=== PATIENT | female | born 1985 | race Caucasian/White ===

== ENCOUNTER → 2017-12-14 13:25 | Outpatient (CLI) | payer MEDICAID, SELFPAY ==
[2017-12-14 15:06] LABS: HCT 33.5 % (36.0-46.0); HGB 11.5 g/dL (12.0-15.5); Mean Corp. HGB Concentration 34.3 g/dL (32.0-36.0); Mean Corpuscular Hemoglobin 29.6 pg (27.0-33.0); Mean Corpuscular Volume 86.1 fL (80-95); Mean Platelet Volume 9.6 fL (8.0-11.0); Platelet Count 208 x1000/uL (130-400); RBC 3.89 m/cumm (4.00-5.20); White Blood Cell Count 8.48 k/cumm (4.4-10.8)
[2017-12-14 15:13] LABS: Glucose,1 Hr (Glucola) 120 mg/dL (80-140)
== END ==
PROVIDERS: PCP Family Medicine; Visit Provider Advanced Practice Midwife
DX: Z34.93 Encounter for supervision of normal pregnancy, unspecified, third trimester (principal); Z3A.28 28 weeks gestation of pregnancy
CPT/HCPCS: 36415; 82950; 85027

== ENCOUNTER 2018-02-17 16:25 | Outpatient (CLI) | payer MEDICAID, SELFPAY ==
[2018-02-17 16:55] LABS: HCT 34.7 % (36.0-46.0); HGB 11.8 g/dL (12.0-15.5); Mean Corpuscular Hemoglobin 29.2 pg (27.0-33.0); Mean Corpuscular Volume 85.9 fL (80-95); Mean Platelet Volume 10.3 fL (8.0-11.0); Platelet Count 214 x1000/uL (130-400); RBC 4.04 m/cumm (4.00-5.20); RBC Distribution Width 13.3 % (11.7-14.6); White Blood Cell Count 7.09 k/cumm (4.4-10.8)
[2018-02-17 17:37] LABS: COMMENT (LAB VIEW ONLY) 126.74 mg/dL
[2018-02-17 17:38] LABS: ALT 27 U/L (12-78); AST 19 U/L (15-37); Albumin 2.7 g/dL (3.4-5.0); Alkaline Phosphatase 148 U/L (46-116); Bilirubin, Direct 0.09 mg/dL (0.00-0.20); Bilirubin, Total 0.3 mg/dL (0.2-1.0); Total Protein 6.2 g/dL (6.4-8.2); Uric Acid 4.7 mg/dL (2.6-6.0)
[2018-02-17 17:43] LABS: Prot/Crea Ur Ratio 0.12
== END 2018-02-17 16:45 ==
PROVIDERS: PCP Family Medicine; Visit Provider Advanced Practice Midwife
DX: Z34.93 Encounter for supervision of normal pregnancy, unspecified, third trimester (principal); Z36.85 Encounter for antenatal screening for Streptococcus B; Z36.89 Encounter for other specified antenatal screening
CPT/HCPCS: 36415; 80076; 85027; 82565; 84156; 84550; 87081

== ENCOUNTER 2018-02-23 13:37 | Outpatient (CLI) | payer MEDICAID, SELFPAY ==
[2018-02-23 14:07] LABS: HCT 37.9 % (36.0-46.0); HGB 12.9 g/dL (12.0-15.5); Mean Corpuscular Hemoglobin 29.1 pg (27.0-33.0); Mean Corpuscular Volume 85.6 fL (80-95); Mean Platelet Volume 10.7 fL (8.0-11.0); Platelet Count 199 x1000/uL (130-400); RBC 4.43 m/cumm (4.00-5.20); RBC Distribution Width 13.6 % (11.7-14.6); White Blood Cell Count 7.03 k/cumm (4.4-10.8)
[2018-02-23 14:41] LABS: ALT 37 U/L (12-78); AST 33 U/L (15-37); Alkaline Phosphatase 171 U/L (46-116); Bilirubin, Direct 0.14 mg/dL (0.00-0.20); Bilirubin, Total 0.4 mg/dL (0.2-1.0); Total Protein 6.8 g/dL (6.4-8.2); Uric Acid 4.9 mg/dL (2.6-6.0)
[2018-02-23 14:51] LABS: PROTEIN 17.3 mg/dL
[2018-02-23 14:52] LABS: COMMENT (LAB VIEW ONLY) 124.08 mg/dL; Prot/Crea Ur Ratio 0.13
== END 2018-02-23 13:57 ==
PROVIDERS: PCP Family Medicine; Visit Provider Advanced Practice Midwife
DX: Z34.83 Encounter for supervision of other normal pregnancy, third trimester (principal)
CPT/HCPCS: 80076; 85027; 82565; 84156; 84550

== ENCOUNTER 2018-03-03 15:33 | Outpatient (CLI) | payer MEDICAID, SELFPAY ==
[2018-03-03 16:47] LABS: HCT 37.2 % (36.0-46.0); HGB 12.8 g/dL (12.0-15.5); Mean Corp. HGB Concentration 34.4 g/dL (32.0-36.0); Mean Corpuscular Hemoglobin 29.6 pg (27.0-33.0); Mean Corpuscular Volume 86.1 fL (80-95); Mean Platelet Volume 10.8 fL (8.0-11.0); Platelet Count 215 x1000/uL (130-400); RBC 4.32 m/cumm (4.00-5.20); RBC Distribution Width 13.5 % (11.7-14.6); White Blood Cell Count 8.09 k/cumm (4.4-10.8)
== END 2018-03-03 15:53 ==
PROVIDERS: PCP Family Medicine; Visit Provider Obstetrics & Gynecology Gynecology
DX: O34.219 Maternal care for unspecified type scar from previous cesarean delivery (principal); Z01.818 Encounter for other preprocedural examination
CPT/HCPCS: 85027; 86850; 86900; 86901

== ENCOUNTER 2018-03-05 06:18 | Inpatient (IN) | payer MEDICAID, SELFPAY ==
[2018-03-05] VITALS (11 sets, daily range): BP systolic 155; BP diastolic 95; PULSE 101; RESP 16–20; TEMP 36.9; O2SAT 99–100
[2018-03-05] MEDS: Lactated Ringers 1,000 ML 125 ML IV (07:00)
[2018-03-05] MEDS: Sodium Citrate 30 ML CUP PO (07:05)
[2018-03-05] MEDS: Bupivacaine 0.25% Pres-Free 10 ML VIAL IT (08:00)
--- NOTE | 2018-03-05 08:45 | FALL_PTH ---
PATIENT: Sheron Silver LOC: OBS U#:[id number] AGE/SX: 32/F ROOM: OBS.304 RE03/05/[address]: Pattie Lopez : 1985 BED: A DIS: 03/07/2018 SPEC #: [id number] RECD: 03/05/18 12:21 STATUS: TWYLA REDarcy #: [id number] MICHELLE: 03/05/18 08:[address]: Pattie Lopez DEPT: Surgical Specimen RECD BY: Serena De La Fuente ENTERED: 03/05/18 12:22 SP TYPE: Fall OTHR DR: Jaden Covarrubias MD Tissues: 1 - FALLOPIAN TUBE (STERILIZATION) 2 - FALLOPIAN TUBE (STERILIZATION) Procedures: GROSS AND MICRO LEVEL 2 Comments: [id number]
[2018-03-05] MEDS: Ketorolac 30 MG/ML VIAL IVP ×2 (11:25→18:06)
[2018-03-05] MEDS: Normal Saline Flush 10 ML SYR IVP (11:25)
[2018-03-05] MEDS: Lactated Ringers 1,000 ML 120 ML IV (16:44)
[2018-03-05] MEDS: Lactated Ringers 500 ML IV (16:55)
[2018-03-05] MEDS: Acetaminophen 325 MG TAB 650 MG PO (18:12)
[2018-03-05] MEDS: Normal Saline Flush 10 ML SYR IV (18:12)
[2018-03-06] MEDS: Ketorolac 30 MG/ML VIAL IVP ×2 (00:10→06:17)
[2018-03-06] MEDS: oxyCODONE 5 mg/Acetaminophen 325 mg TAB PO ×6 (00:12→19:05)
[2018-03-06 08:22] LABS: HCT 30.9 % (36.0-46.0); HGB 10.3 g/dL (12.0-15.5); Mean Corp. HGB Concentration 33.3 g/dL (32.0-36.0); Mean Corpuscular Hemoglobin 28.9 pg (27.0-33.0); Mean Corpuscular Volume 86.8 fL (80-95); Mean Platelet Volume 10.6 fL (8.0-11.0); Platelet Count 168 x1000/uL (130-400); RBC 3.56 m/cumm (4.00-5.20); RBC Distribution Width 13.4 % (11.7-14.6); White Blood Cell Count 8.65 k/cumm (4.4-10.8)
[2018-03-06] MEDS: Ibuprofen 600 MG TAB PO ×3 (12:30→23:27)
[2018-03-06] MEDS: Docusate Sodium 100 MG CAP PO (18:30)
[2018-03-07] MEDS: oxyCODONE 5 mg/Acetaminophen 325 mg TAB PO ×2 (00:29→11:20)
[2018-03-07] MEDS: Ibuprofen 600 MG TAB PO ×2 (05:50→11:17)
--- NOTE | 2018-03-08 09:24 | ROE_ITS ---
DATE OF PROCEDURE March 06, 2018 PREOPERATIVE DIAGNOSES Intrauterine at term. Desires permanent sterilization. PREOPERATIVE DIAGNOSES Intrauterine at term. Desires permanent sterilization. PROCEDURE Elective repeat low transverse caesarean delivery with bilaterally salpingectomy. SURGEON Pattie Lopez M.D. LABORATORY CHIEF Nano Benson M.D. ANESTHESIA Spinal by Drew Lutz C.R.N.A. FLUIDS 800 cc of crystalloid. URINE OUTPUT 50 cc of clear adama urine in the Britton catheter at the completion of the procedure. ESTIMATED BLOOD LOSS 600 cc. DRAINS Britton to gravity drainage. SPECIMENS Cord blood to lab. Right and left fallopian tubes. COMPLICATIONS None. DISPOSITION Awake to Recovery Area in stable condition. INDICATIONS This is a 32-year-old multiparous female who had been [facility] at [facility] and desires permanent sterilization. She has been counseled regarding the alternatives, the risk of regret and any possible complications. FINDINGS AT THE TIME OF SURGERY A viable female 7 pounds 0 ounces. Apgars 8 at one minute, 9 at 5 minutes. Parents will call her Yandy. Clear amniotic fluid. Normal fallopian tube, uterus, and ovaries. DESCRIPTION OF PROCEDURE The patient was taken to the Operating Room where she was placed in a sitting position, and spinal anesthesia was administered without difficulty. She was then placed in the supine position with a leftward tilt. A Britton catheter was placed to gravity drainage. Betadine prep of the vagina was performed by myself. The abdomen was prepped and draped in the usual sterile fashion. A scalpel was used to incise along the previous Pfannenstiel incision, and the underlying subcutaneous tissue was dissected using Bovie electrocautery to the level of the rectus fascia. The rectus fascia was nicked in the midline and the incision was extended laterally with curved Calderon scissors. Two Rox clamps were applied to the inferior aspect of the incision. The rectus muscles were dissected off of the overlying rectus fascia using blunt technique and Bovie electrocautery. A similar technique was carried out in the superior aspect of this incision. The rectus muscles were then in the midline. The peritoneum was entered bluntly and the peritoneal incision was stretched to allow adequate visualization of the low uterine segment. The bladder blade was used to retract the bladder away from the operative field. The vesicouterine reflection was then grasped, entered with Metzenbaum scissors and the incision extended laterally. The bladder flap was created digitally and the bladder was once again retracted away from the operative field with the bladder blade. A scalpel was used to incise the lower uterine segment in a transverse fashion. The incision was extended laterally with blunt technique. The sac was ruptured. A single-gloved hand was placed into the uterus. The head was delivered atraumatically with the assistance of fundal pressure, followed by shoulders, trunk and extremities. The cord was doubly clamped and cut. The was handed off to the waiting Pediatric team. The placenta was then delivered with a combination of gentle cord traction and uterine fundal massage. The uterus was exteriorized, cleared of all clots and debris. The uterine incision was closed with an imbricating suture of #0-Vicryl followed by a second suture of #0 -Vicryl in a vertical mattress fashion. The uterine incision was noted to be hemostatic. Attention was turned to the patient's fallopian tubes, which were identified, grasped and using a 5-mm LigaSure device, sequentially clamped, cauterized and cut to the level of the uterine cornua. This occurred on both the right and left sides, both specimens were passed off of the operative field and sent to pathology. After it was assured there was hemostasis at the salpingectomy site, the uterus was returned to the abdomen. The pericolic gutters cleared of all clots and debris. The abdominal wall and bladder flap inspected and noted to be hemostatic. The abdominal peritoneum was re-approximated with a running suture of #2-0 Vicryl and the rectus fascia was reapproximated with a running suture of 0-Vicryl extended from the lateral margins overlapping in the midline. Subcutaneous tissue was irrigated with normal saline, noted to be hemostatic. space was closed with a running suture of #2-0 Vicryl. The skin was reapproximated with a #4-0 Vicryl in a subcuticular fashion. The skin was then sealed with skin glue. The uterus was massaged for any remaining clots and debris. The patient was then transferred to the Recovery Area in stable condition. SCDs were on during the case. She received 2 grams of Ancef prior to skin incision.
== END 2018-03-07 12:45 | disposition home or self-care (01) | DRG 785 ==
LOC: PDS 07:44 → OBS 08:53
PROVIDERS: Admitting Provider Obstetrics & Gynecology Gynecology; PCP Family Medicine; Visit Provider Obstetrics & Gynecology Gynecology
PROC: 10D00Z1 Extraction of Products of Conception, Low, Open Approach (ICD-10-PCS; CPT 59514; principal; 2018-03-05 07:30)
DX: O34.211 Maternal care for low transverse scar from previous cesarean delivery (principal); Z37.0 Single live birth; Z30.2 Encounter for sterilization; Z3A.40 40 weeks gestation of pregnancy; N85.8 Other specified noninflammatory disorders of uterus
CPT/HCPCS: 59514; 58611; 36415; 85027; 88302; J0690; J1885; J2405; J3010; J3490

== ENCOUNTER 2019-02-12 19:30 | Emergency (ER) | payer MEDICAID, SELFPAY ==
[2019-02-12 19:42] VITALS: BP 136/94; PULSE 109; RESP 19; TEMP 36.7; O2SAT 99
--- NOTE | 2019-02-12 20:23 | ED.GENADUL_ITS ---
Discharge Plan Disposition Patient Disposition: HOME Discharge Details Chief Complaint: RashLesion Clinical Impression: Genital lesion, female Primary Care Provider: Jaden Covarrubias ED Provider: Guru Nelson Home Meds and New Rx's Prescriptions: No Action CompleteNate 1 EACH tablet,chewable 1 ea PO DAILY Qty: 30 RF: 5 ibuprofen 600 mg tablet 600 mg PO QID PRN (Reason: pain) Qty: 30 RF: 0 valacyclovir 500 mg tablet 500 mg PO Q12H Qty: 14 RF: 2 Discharge Instructions Additional Instructions: Your lesions today are most likely a result of your waxing. I have a low suspicion for herpes at this time. We did send for confirmatory testing via blood. Your primary care if we will follow-up with results. Avoid irritating the lesions. Place bacitracin over the shallow ulcerations Referrals: Jaden Covarrubias MD [Primary Care Provider] - 5 days Medical Decision Making This is a nontoxic-appearing 33-year-old female presenting to the emergency department with genital lesions status post Maur[place]ian wax at home 1 week ago. Symptoms started within 24 hours after her waxing. She has no significant pain. Ulceration on her right labia does not have characteristics of a herpetic lesion. She does have several papules. I suspect most more likely local irritation in setting of her waxing. She does have an order for a herpes simplex virus placed by her primary care provider with with she has not been able to have drawn at this time. We will draw labs here for confirmatory testing. She will follow-up with her primary care provider as needed. HPI General Date/Time Provider Initiated Documentation: 02/12/19 20:05 . HPI Narrative: Patient is a 33-year-old female who presents to the emergency department with shallow ulcerations over her vagina. Patient states symptoms started roughly 1 week ago and occurred roughly 12 hours status post performing a home Mauritanian wax. Patient states that initially her vision started off as what looked like pimples and then several of them developed into shallow ulcerations. She denies any significant tenderness. No fevers. No abdominal pain. Patient states that she sent photos to her primary care provider who was concerned that there may be herpetic and started her on valacyclovir. Patient had a order placed outpatient for an HSV panel however has been unable to get time off from work. She is here for repeat evaluation but then also have the confirmatory testing performed. Related Data Home Medications Medication Instructions Recorded Confirmed vit 14-iron fum-folic 1 ea PO DAILY #30 tab.chew 07/06/17 02/12/19 [Completenate Tablet Chew] ibuprofen 600 mg tablet 600 mg PO QID PRN #30 tab 03/07/18 02/12/19 valacyclovir 500 mg tablet 500 mg PO Q12H #14 tab 02/12/19 02/12/19 Previous Rx's Medication Instructions Recorded vit 14-iron fum-folic 1 ea PO DAILY #30 tab.chew 07/06/17 [Completenate Tablet Chew] ibuprofen 600 mg tablet 600 mg PO QID PRN #30 tab 03/07/18 valacyclovir 500 mg tablet 500 mg PO Q12H #14 tab 02/12/19 Allergies Allergy/AdvReac Type Severity Reaction Status Date / Time No Known Drug Allergies Allergy Unverified 02/12/19 19:47 General Stated Complaint: RashLesion WAYNE: 3 Review of Systems Constitutional Constitutional: Denies chills, Denies fatigue, Denies fever(s) and Denies lethargy Genitourinary Genitourinary: Denies abnormal vaginal bleeding, Denies hematuria, Denies urinary frequency, Denies difficulty voiding, Denies post void dribbling, Denies genital pruritis, Reports genital lesions, Denies menorrhagia, Denies dysuria, Denies pelvic pain, Denies sexual dysfunction, Denies urinary incontinence and Denies vaginal discharge Integumentary/Breasts Skin/Breast: Reports rash, Denies skin pain, Denies skin swelling, Reports skin ulcer and Reports sores Endocrine Endocrine: Denies fatigue [facility] Medical History History of gestational hypertension (Acute) 2014 with anterpartum. 2018 Rx with Nifedipine and changed to labetalol with improvement in blood pressures.07/2018 Labetalol discontinued. Sterilization (Resolved) 03/05/18.at time of repeat c/s. Surgical History section (08/19/13) LTCS 2 layer closure. F. 'Brigida'. 3370gm arrest of descent. IOL for HTN. 03/05/18 elective repeat F. 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 What is your relationship status?: Panel score (0-1 are the most socially isolated patients): 1 Duration: 60-90 minutes/day Frequency: 5-6 times per week Special rafiq needs: No Seatbelt use: always Helmet use: Yes Drive intox or ride w/intox scoop driver: No Water heater temp set <120 deg: No Working smoke detector in home: Yes Fire extinguisher in home: Yes Carbon monox detector in home: Yes Firearms in home: Yes Firearms unloaded and locked: Yes Do you feel safe at home: Yes Do you feel safe in your relationship?: Yes Victim of physical abuse: No Victim of emotional abuse: No Victim of sexual abuse: No History History 3 Para 1 Hx # Term Pregnancies 1 Multiple births Hx # Pregnancies Ectopic pregnancies AB induced Hx Number of Living Children 1 AB spontaneous 1 Past Pregnancies Del. Date GA/Weeks # Outcome Route Wgt Sex Labor Lgth Anesthes ia Location [facility] 08/19/13 38 No Successful 3.374 kg Female 72 hrs [facility] AOC 03/05/18 No Successful vaginal [place] [facility] [place] Delivery Date: 08/19/13 On 02/10/18 @ 11:35 Zoila Murguia RN OIL preeclampsia- failed OIL after multiple attempts Delivery Date: 03/05/18 On 05/05/18 @ 14:37 Mireya Ulrich LPN Brigida Exam Const General: cooperative, healthy appearing, comfortable and no acute distress HENMT Head: normal to inspection General nose exam: external nose normal Mouth: oral mucosae normal Resp Effort & Inspection: normal respiratory effort External Female Exam: external lesions (several shallow erythematous papules on either labia. ) and other Other: Small shallow ulceration on the right labia. Area is nontender. No erythema or evidence of infection. No mucosal lesions. Course Vital Signs Vital signs: Vital Signs Temperature 36.7 C 02/12/19 19:42 Pulse 109 H 02/12/19 19:42 Respiratory Rate 19 02/12/19 19:42 Blood Pressure 136/94 H 02/12/19 19:42 Pulse Oximetry 99 02/12/19 19:42 Temperature 36.7 C 02/12/19 19:42 Temperature Source Skin 02/12/19 19:42 Pulse 109 H 02/12/19 19:42 Respiratory Rate 19 02/12/19 19:42 Respiratory Effort 02/12/19 19:48 Blood Pressure 136/94 H 02/12/19 19:42 Blood Pressure Position Sitting 02/12/19 19:42 Pulse Oximetry 99 02/12/19 19:42 Oxygen Delivery Method Room Air 02/12/19 19:42 Oxygen Flow Rate 0 02/12/19 19:42 Pain Level 3 02/12/19 19:42
[2019-02-14 23:31] LABS: HSV 1 PCR, Blood Negative (Negative); HSV 2 PCR, Blood Negative (Negative)
== END 2019-02-12 21:24 | disposition home or self-care (01) ==
PROVIDERS: Emergency Provider Physician Assistant; PCP Family Medicine
DX: N90.89 Other specified noninflammatory disorders of vulva and perineum (principal)
CPT/HCPCS: 87529; 99283

== ENCOUNTER 2020-09-05 08:39 | Outpatient (CLI) | payer MEDICAID, SELFPAY ==
[2020-09-06 13:11] LABS: COVID-19 RT-PCR UVMMC Result Positive (Negative)
== END 2020-09-05 08:40 | disposition home or self-care (01) ==
DX: Z20.822 Contact with and (suspected) exposure to COVID-19 (principal); R05 Cough
CPT/HCPCS: U0003

== ENCOUNTER 2021-02-15 16:41 | Outpatient (REF) | payer MEDICAID, SELFPAY ==
--- NOTE | 2021-02-15 16:15 | PAPFT_PTH ---
PATIENT: Sheron Silver LOC: [facility] U#:[id number] AGE/SX: 35/F ROOM: RE02/15/[address]: Pattie Lopez : 1985 BED: DIS: 02/15/2021 SPEC #: [id number] RECD: 02/18/21 11:17 STATUS: TWYLA REDarcy #: [id number] MICHELLE: 02/15/21 16:[address]: Pattie Lopez DEPT: [facility] Cytology RECD BY: Betty Rocha ENTERED: 02/18/21 11:18 SP TYPE: PAPFT OTHR DR: Emely Quan APRN Tissues: 1 - CX/ENDOCX FOR PAP SMEARS Procedures: PAP THIN PREP/UVM Screening HPV DNA PROBE Comments: [id number]
== END 2021-02-15 16:42 | disposition home or self-care (01) ==
LOC: LBN 16:41
PROVIDERS: Visit Provider Obstetrics & Gynecology Gynecology
DX: Z12.4 Encounter for screening for malignant neoplasm of cervix (principal); Z01.419 Encounter for gynecological examination (general) (routine) without abnormal findings; Z11.51 Encounter for screening for human papillomavirus (HPV)
CPT/HCPCS: 88142; 87624

== ENCOUNTER 2022-01-23 14:11 | Outpatient (REF) | payer MEDICAID, SELFPAY ==
[2022-01-23 21:16] LABS: Bilirubin Negative (Negative); Blood Small (Negative); Clarity Cloudy (Clear); Glucose Negative (Negative); Ketones Negative (Negative); Leukocyte Esterase Large (Negative); Nitrite Negative (Negative); Specific Gravity 1.015 (1.005-1.025); Urobilinogen 0.2 EU/dL (Up TO 0.2)
[2022-01-23 21:28] LABS: Epithelial Cells Rare HPF (Negative); WBC >50 HPF (0-5)
[2022-01-23 21:29] LABS: Bacteria Few HPF (Negative); C & S Indicated? Yes; Crystals Negative HPF (Negative); Mucus Negative (Negative); Other Cells Few Renal (Negative)
== END 2022-01-23 14:12 | disposition home or self-care (01) ==
LOC: LBN 14:11
PROVIDERS: PCP Nurse Practitioner Family; Visit Provider Nurse Practitioner Family
DX: R39.89 Other symptoms and signs involving the genitourinary system (principal)
CPT/HCPCS: 87077; 81003; 81015; 87086; 87186

== ENCOUNTER 2022-05-04 11:56 | Emergency (ER) | payer MEDICAID, SELFPAY ==
[2022-05-04 11:59] VITALS: BP 146/104; PULSE 96; RESP 20; TEMP 37.1; O2SAT 99
--- NOTE | 2022-05-04 12:40 | ED.GENADUL_ITS ---
Discharge Plan Disposition Patient Disposition: Home Condition: Stable Discharge Details Clinical Impression: Acute streptococcal pharyngitis Primary Care Provider: Willian Talley ED Provider: Mich Nguyen Home Meds and New Rx's Prescriptions: New amoxicillin 500 mg tablet 500 mg PO BID 10 Days Qty: 20 0RF Continued multivitamin [Daily Multi-Vitamin] Tablet 1 tab PO DAILY sertraline 25 mg tablet 25 mg PO DAILY Qty: 30 4RF magnesium 200 mg tablet 200 mg PO DAILY Qty: 90 3RF hydrochlorothiazide 12.5 mg tablet 12.5 mg PO DAILY Qty: 104 3RF Rx Instructions: Take one tablet daily. Take two tablets daily for 14 days during menstrual cycle. ibuprofen 600 mg tablet 600 mg PO QID PRN (Reason: pain) Qty: 30 0RF Discharge Instructions Instructions: Pharyngitis (ED) Additional Instructions: Please take antibiotic as prescribed and for the full course of medication. If you develop any new or significant worsening of symptoms feel free to return the emergency department for reassessment. Otherwise you may continue to take pewe-xfj-ooopwdy medication as needed for pain or fever. Also take probiotic as discussed. If you are not improving in the next week please follow-up with your primary care provider for reassessment Referrals: Willian Talley, [employer] [Primary Care Provider] - (If not improving follow-up with primary care provider) Discharge Data Discharge Date/Time-TO BE ENTERED AT DEPARTURE: 05/04/22 12:57 Medical Decision Making Patient presenting to the emergency department for chief complaint of sore throat that had sudden onset yesterday. Patient denies any difficulty breathing swallowing and states only other associated symptom beyond pain and discomfort is some very mild nasal congestion. Exam consistent with Pharyngitis. no signs of deep neck space infection ( Retropharyngeal abscess, Rafael's angina, Parapharyngeal space infection, Peritonsillar Abscess (DRILL BIT SHARPENER)) or Epiglottitis. Pt non toxic and stable. 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 Patient placed on amoxicillin. Patient also was given single dose of Decadron in the emergency department to help with symptoms. After discussion of diagnosis and plan of care patient has no further needs, questions, or concerns and states clear understanding to return to the emergency department for any worsening symptoms. This documentation was generated using [employer] system, please disregard any oddities of phrase or misspellings. HPI General Mode of arrival: ambulatory . Date/Time Provider Initiated Documentation: 05/04/22 11:57 . Limitations to Documentation: no limitations . Information obtained by: patient and RN notes reviewed . History of Present Illness 37 year old F presents to the emergency department with the chief complaint of Sore throat, described as moderate and severe, with intensity rated at 8. Quality is described as sharp, Patient started experiencing this day(s) (1) and it has been constant. No relieving factors improve symptom(s), No exacerbating factors reported . Patient did receive the following treatments prior to arrival, NSAID Related Data Home Medications Medication Instructions Recorded Confirmed ibuprofen 600 mg tablet 600 mg PO QID PRN pain #30 tabs 03/07/18 05/04/22 multivitamin (Daily Multi-Vitamin 1 tab PO DAILY 02/15/21 05/04/22 tablet) magnesium 200 mg tablet 200 mg PO DAILY #90 tabs 05/23/21 05/04/22 hydrochlorothiazide 12.5 mg tablet 12.5 mg PO DAILY #104 tabs 04/17/22 05/04/22 sertraline 25 mg tablet 25 mg PO DAILY #30 tabs 04/21/22 05/04/22 amoxicillin 500 mg tablet 500 mg PO BID 10 days #20 tabs 05/04/22 Previous Rx's Medication Instructions Recorded ibuprofen 600 mg tablet 600 mg PO QID PRN pain #30 tabs 03/07/18 magnesium 200 mg tablet 200 mg PO DAILY #90 tabs 05/23/21 hydrochlorothiazide 12.5 mg tablet 12.5 mg PO DAILY #104 tabs 04/17/22 sertraline 25 mg tablet 25 mg PO DAILY #30 tabs 04/21/22 amoxicillin 500 mg tablet 500 mg PO BID 10 days #20 tabs 05/04/22 Allergies Allergy/AdvReac Type Severity Reaction Status Date / Time No Known Drug Allergies Allergy Verified 04/21/22 15:26 General Stated Complaint: Sorethroat WAYNE: 4 Review of Systems Constitutional Constitutional: Denies chills, Denies fever(s), Denies headache(s) and Reports malaise Eyes Eyes: Reports system reviewed and no additional complaints, except as documented ENT Ears, Nose, Mouth, and Throat: Denies headache(s), Reports nasal congestion (Very mild), Denies nasal discharge and Reports sore throat Cardiovascular Cardiovascular: Denies chest pain and Denies dyspnea Respiratory Respiratory: Denies cough and Denies dyspnea Gastrointestinal Gastrointestinal: Denies abdominal pain, Denies diarrhea, Denies nausea and Denies vomiting Musculoskeletal Musculoskeletal: Denies myalgias Integumentary/Breasts Skin/Breast: Denies rash Neurologic Neurologic: Denies headache(s) PFSH All Active Problems (Updated 05/04/22 @ 12:45 by Mich Nguyen NP) Acute streptococcal pharyngitis (Acute) PMS (premenstrual syndrome) (Acute) Influenza vaccination requested (Acute) Edema (Acute) Elevated blood pressure reading (Acute) History of gestational hypertension (Acute) 2013 with anterpartum. 2017 Rx with Nifedipine and changed to labetalol with improvement in blood pressures.07/2018 Labetalol discontinued. Insomnia (Acute 03/29/13) Increased body mass index (Acute) Depression (Acute) Anxiety (Acute) Surgical History Cholecystectomy (~01/2007) History of section 08/19/13. LTCS 2 layer closure. Foote (Averie). 3370gm arrest of descent. IOL for HTN. 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 What is your relationship status?: Panel score (0-1 are the most socially isolated patients): 1 Duration: 60-90 minutes/day Frequency: 5-6 times per week Special rafiq needs: No Seatbelt use: always Helmet use: Yes Drive intox or ride w/intox steam train driver: No Water heater temp set <120 deg: No Working smoke detector in home: Yes Fire extinguisher in home: Yes Carbon monox detector in home: Yes Firearms in home: Yes Firearms unloaded and locked: Yes Do you feel safe at home: Yes Do you feel safe in your relationship?: Yes Victim of physical abuse: No Victim of emotional abuse: No Victim of sexual abuse: No History History 3 Para 1 Hx # Term Pregnancies 1 Multiple births Hx # Pregnancies Ectopic pregnancies AB induced Hx Number of Living Children 1 AB spontaneous 1 Past Pregnancies Del. Date GA/Weeks # Preg Succ Route Wgt Sex Labor Lgth Anesth esia Location Prov Complic 08/19/13 38 No 3373.593 g Female 72 hrs [facility] AOC 03/05/18 No vaginal Female [facility] Delivery Date: 08/19/13 Last Updated by: Zoila Murguia RN OIL preeclampsia- failed OIL after multiple attempts Delivery Date: 03/05/18 Last Updated by: Mireya Allred Exam Const General: cooperative, comfortable and no acute distress Orientation: alert and awake HENMT Head: normal to inspection, normocephalic and atraumatic Ears: hearing grossly normal bilaterally and TM's normal bilaterally General nose exam: external nose normal Face and sinus: no erythema Mouth: oral mucosae normal, no drooling, no muffled voice and no trismus Throat: abnormal tonsil bilaterally erythema and posterior oropharynx abnormal erythema Neck Neck: normal visual inspection, full ROM, no lymphadenopathy, no meningeal signs, trachea midline and supple Resp Effort & Inspection: normal respiratory effort and able to speak in complete sentences Auscultation: clear to auscultation bilaterally Cardio Rate: regular rate Rhythm: regular rhythm Heart Sounds: S1 normal, S2 normal and normal S1 and S2 Skin General skin exam: no rashes or lesions noted and dry skin (warm) Neuro General: patient alert, patient awake, patient oriented x3 and moves all extremities Cognition: normal cognition Speech: speech normal Course Vital Signs Vital signs: Vital Signs Temperature 37.1 C 05/04/22 11:59 Pulse 96 H 05/04/22 11:59 Respiratory Rate 20 05/04/22 11:59 Blood Pressure 146/104 H 05/04/22 11:59 Pulse Oximetry 99 05/04/22 11:59 Temperature 37.1 C 05/04/22 11:59 Temperature Source Temporal Artery Scan 05/04/22 11:59 Pulse 96 H 05/04/22 11:59 Respiratory Rate 20 05/04/22 11:59 Respiratory Effort Non-Labored 05/04/22 12:04 Blood Pressure 146/104 H 05/04/22 11:59 Blood Pressure Position Sitting 05/04/22 11:59 Pulse Oximetry 99 05/04/22 11:59 Oxygen Delivery Method Room Air 05/04/22 11:59 Oxygen Flow Rate 0 05/04/22 11:59 Pain Level 10 05/04/22 11:59 Lab/Test Results Lab/Test Results: POC Strep Test-CHARLES(Rapid) Start: 05/04/22 12:13 Freq: .Rapid Strep Test Status: Active Protocol: Document 05/04/22 12:13 AP (Rec: 05/04/22 12:14 AP [id number]) Strep test-CHARLES(Rapid)-POC POC-Strep test-CHARLES (Rapid) Positive POC-Strep test-CHARLES (Rapid) Positive
[2022-05-04] MEDS: Dexamethasone 10 MG/ML VIAL PO (12:46)
[2022-05-04] MEDS: Amoxicillin 500 MG CAP (12:55)
== END 2022-05-04 12:57 | disposition home or self-care (01) ==
PROVIDERS: Emergency Provider Nurse Practitioner Family; PCP Nurse Practitioner Family
DX: J02.0 Streptococcal pharyngitis (principal)
CPT/HCPCS: 87880; 99283; J1100

== ENCOUNTER 2022-08-21 15:29 | Outpatient (REF) | payer MEDICAID, SELFPAY | END 2022-08-21 15:30 | disposition home or self-care (01) | LOC: LBN 15:29 | PROVIDERS: PCP Nurse Practitioner Family; Visit Provider Nurse Practitioner Family | DX: R30.0 Dysuria (principal) | CPT/HCPCS: 87077; 87086; 87186 ==

== ENCOUNTER 2023-03-16 20:54 | Outpatient (CLI) | payer MEDICAID, SELFPAY ==
[2023-03-16 17:37] LABS: Estradiol 130 pg/mL (See Note)
== END 2023-03-16 20:55 | disposition home or self-care (01) ==
LOC: LBO 20:54
PROVIDERS: PCP Nurse Practitioner Family; Visit Provider Obstetrics & Gynecology Gynecology
DX: N94.3 Premenstrual tension syndrome (principal); R23.2 Flushing
CPT/HCPCS: 36415; 82670; 83001

== ENCOUNTER 2023-09-18 07:46 | Outpatient (CLI) | payer MEDICAID, SELFPAY ==
[2023-09-18 08:05] LABS: Hemoglobin A1C 5.3 % (<5.7)
[2023-09-18 08:41] LABS: ALT 33 U/L (14-59); AST 37 U/L (15-37); Alkaline Phosphatase 63 U/L (46-116); Anion Gap 5.4 mmol/L (3-11); BUN 26 mg/dL (7-18); Bilirubin, Total 0.3 mg/dL (0.2-1.0); CO2 28.6 mmol/L (21.0-32.0); CREATININE 0.8 mg/dL (0.55-1.02); Calcium 9.1 mg/dL (8.5-10.1); Calculated LDL 33 mg/dL (<100); Chloride 100 mmol/L (98-107); Cholesterol 134 mg/dL (<200); Estimated GFR 96.06 (mL/min/1.73m2); Glucose 114 mg/dL (74-106); HDL Cholesterol 78 mg/dL (40-60); Sodium 134 mmol/L (136-145); TSH (W/Ref FT4) 1.87 uIU/mL (0.36-3.74); Total Protein 7.3 g/dL (6.4-8.2); Triglyceride 116 mg/dL (<150)
== END 2023-09-18 07:47 | disposition home or self-care (01) ==
LOC: LBO 07:46
PROVIDERS: PCP Nurse Practitioner Family; Visit Provider Nurse Practitioner Family
DX: Z13.220 Encounter for screening for lipoid disorders (principal); R60.0 Localized edema; Z13.1 Encounter for screening for diabetes mellitus
CPT/HCPCS: 36415; 80053; 80061; 83036; 84443

== ENCOUNTER 2023-11-30 11:34 | Outpatient (CLI) | payer MEDICAID, SELFPAY ==
--- NOTE | 2023-11-30 08:30 | DI.RAD_ITS ---
Exam(s) XR HAND RT COMPLETE EXAM: XR HAND RT COMPLETE CLINICAL HISTORY: pain at base of thumb. TECHNIQUE: 2D digital imaging was performed of the right hand. Three images were obtained. AP, late ral and oblique views were obtained. COMPARISON: CR LEFT MIDDLE FINGER from 10/12/2014 FINDINGS: BONES: No acute fracture is present. No bony destructive lesion is seen. JOINTS: No dislocation present. SOFT TISSUE: Normal. IMPRESSION: Unremarkable radiographs of the right hand. DATA REPOSITORY: RADIATION DOSE DELIVERED:
== END 2023-11-30 11:35 | disposition home or self-care (01) ==
LOC: DIORS 11:35
PROVIDERS: PCP Nurse Practitioner Family; Referring Provider Nurse Practitioner Family; Visit Provider Physician Assistant
DX: M18.9 Osteoarthritis of first carpometacarpal joint, unspecified (principal); M18.11 Unilateral primary osteoarthritis of first carpometacarpal joint, right hand
CPT/HCPCS: 73130

== ENCOUNTER 2024-08-03 15:56 | Outpatient (REF) | payer SELFPAY | END 2024-08-03 15:57 | disposition home or self-care (01) | LOC: LBN 15:56 | PROVIDERS: PCP Nurse Practitioner Family; Visit Provider Obstetrics & Gynecology | DX: Z12.4 Encounter for screening for malignant neoplasm of cervix (principal) | CPT/HCPCS: 88142; 87624 ==

== ENCOUNTER 2024-08-24 02:38 | Outpatient (CLI) | payer SELFPAY ==
--- NOTE | 2024-08-24 17:30 | DI.MAMMO_ITS ---
Exam(s) MAMMO SCREENING EXAM: MAMMO SCREENING CLINICAL HISTORY: screening TECHNIQUE: Bilateral full field digital CC and MLO mammographic images were obtained with 3D tomosyn thesis and utilizing computer aided detection (CAD). COMPARISON: This is a baseline examination. There are no priors for comparison. FINDINGS: Masses/Architectural Distortion: No suspicious masses or areas of architectural distortion are presen t. Microcalcifications: No suspicious pleomorphic-type are seen. Skin Thickening/Nipple Retraction: None. IMPRESSION: 1. No evidence for malignancy is seen at this time. 2. Unless there is more urgent need, screening mammography is recommended, as per [employer] guidelines. BI-RADS Category 1 - Negative Breast Density - Category C - Heterogeneously dense Breast density category C or D implies that the patient has dense breast tissue. Dense breast tissue is very common and is not abnormal but dense breast tissue can make it harder to find cancer on a ma mmogram. Also, dense breast tissue may increase their breast cancer risk. This information about the result of the mammogram report was provided to the patient to raise their awareness. Use this report when you speak with the patient about their risks for breast cancer, which includes their family hist ory. At that time, you may recommend for more screening tests (Ultrasound or MRI) as they might be us eful based on their risk. A negative radiographic report should not delay biopsy if a dominant or clinically suspicious mass is present. Up to ten percent of cancers are not identified on mammography. A negative report may reinforce clinical impression. Adenosis and dense breasts may obscure an underlying neoplasm. False positive reports average 6 to 10%. Patient will receive a letter notifying them of these results.
== END 2024-08-24 02:58 ==
LOC: DI 02:39
PROVIDERS: PCP Nurse Practitioner Family; Visit Provider Obstetrics & Gynecology
DX: Z12.31 Encounter for screening mammogram for malignant neoplasm of breast (principal); R92.333 Mammographic heterogeneous density, bilateral breasts
CPT/HCPCS: 77063; 77067